=== PATIENT | male | born 1995 | race Two or more races ===

== ENCOUNTER 2019-05-15 09:45 | Emergency (ER) | payer SELFPAY ==
[2019-05-15 10:10] VITALS: BP 148/64
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
== END 2019-05-15 10:40 | disposition home or self-care (01) ==
LOC: ER 09:45
DX: M54.5 Low back pain (principal); Z90.89 Acquired absence of other organs; V59.9XXA Occupant (driver) (passenger) of pick-up truck or van injured in unspecified traffic accident, initial encounter; Y93.89 Activity, other specified; Y92.413 State road as the place of occurrence of the external cause; Y99.8 Other external cause status
CPT/HCPCS: 99281